=== PATIENT | male | born 1940 | race Caucasian/White ===

== ENCOUNTER → 2024-04-12 | Day surgery (SDC) | payer MEDICARE ==
[2024-04-11 13:07] LABS: BASOPHILS # (AUTO) 0.2 (0.0-0.1); BASOPHILS % 1.2 % (0.0-1.0); EOSINOPHILS # (AUTO) 0.5 (0.0-0.4); EOSINOPHILS % 2.5 % (0.0-6.0); HEMATOCRIT 56.9 % (38.2-49.6); HEMOGLOBIN 17.3 g/dL (14.0-18.0); LYMPHOCYTES # (AUTO) 1.1 (1.0-3.2); LYMPHOCYTES % 5.8 % (18.0-39.1); MEAN CORPUSCULAR HEMOGLOBIN 25.3 pg (28-32); MEAN CORPUSCULAR HGB CONC 30.4 g/dL (31-35); MEAN CORPUSCULAR VOLUME 83.1 fL (81-99); MONOCYTES # (AUTO) 0.6 (0.2-0.8); NEUTROPHILS % 86.7 % (38.7-80.0); PLATELET COUNT 336 x10e3/uL (140-360); RED BLOOD COUNT 6.85 x10e6/uL (4.3-5.7); RED CELL DISTRIBUTION WIDTH 23.4 % (11.7-14.4)
[2024-04-11 13:36] LABS: ANION GAP 15.8 mmol/L (8-16); CALCIUM 8.3 mg/dL (8.4-10.2); CREATININE, SERUM 1.21 mg/dL (0.72-1.25); POTASSIUM 3.8 mmol/L (3.5-5.1)
[~2024-04-12] MED LIST: ACETAMINOPHEN 1000 MG/100 ML 100 ML IV ONE; AMIODARONE HCL400 MG PO; AMLODIPINE BESYL5 MG PO; ATORVASTATIN CA20 MG PO; CARVEDILOL12.5 MG PO; CYCLOBENZAPRINE10 MG PO; DEXAMETHASONE SOD PHOS INJ 4 MG/ML SDV ONE; DILANTIN50 MG PO; EPHEDRINE SULFATE INJ 50 MG/ML VIAL ONE; ETOMIDATE 2 MG/ML 10 ML INJ IV ONE; FENTANYL CITRATE/PF 100MCG/2 ML INJ ONE; FINASTERIDE5 MG PO; FLOMAX0.4 MG PO; FUROSEMIDE40 MG PO; GLYCOPYRROLATE INJ 0.2 MG/ML VIAL ONE; IOPAMIDOL 610MG/1ML 300 MG/ML VIAL IV ONE; LEVETIRACETAM500 MG PO; LEVOTHYROXINE50 MCG PO; LIDOCAINE HCL 2% LOCAL INJ 5 ML SDV VIAL INJ ONE; ONDANSETRON HCL INJ 2MG/ML 2ML 2 MG/ML VIAL ONE; OXYBUTYNIN CHLOR5 MG PO; PHENYLEPHRINE HCL 1% 10 MG/ML VIAL ONE; PLAVIX75 MG PO; PROPOFOL IV EMULSION 10 MG/ML 20 ML VIAL ONE; PROTONIX20 MG PO; RANOLAZINE ER500 MG; SEVOFLURANE INHAL SOLN 250 ML PEN BTL ONE; SPIRONOLACTONE25 MG PO; XARELTO20 MG PO
[2024-04-12] MEDS: LACTATED RINGER'S 1,000 ML ONE (06:04)
[2024-04-12] MEDS: GENTAMICIN 80MG/NS 100 ML 200 ML IV ONE (06:05)
[2024-04-12 07:35] VITALS: TEMP 97.9
[2024-04-12] MEDS: PHENAZOPYRIDINE HCL 100 MG TAB ONE (08:07)
[2024-04-12 08:30] VITALS: BP 125/70; PULSE 70; RESP 16; O2SAT 95
== END | disposition home or self-care (01) ==
LOC: OR 05:30
PROVIDERS: ATTEND Urology
DX: Z43.5 Encounter for attention to cystostomy (principal); R33.8 Other retention of urine; N32.89 Other specified disorders of bladder; N35.812 Other bulbous urethral stricture, male; N35.819 Other urethral stricture, male, unspecified site; N39.0 Urinary tract infection, site not specified; N31.9 Neuromuscular dysfunction of bladder, unspecified; D44.10 Neoplasm of uncertain behavior of unspecified adrenal gland; N47.1 Phimosis; N13.8 Other obstructive and reflux uropathy; I10 Essential (primary) hypertension; E78.5 Hyperlipidemia, unspecified; I25.810 Atherosclerosis of coronary artery bypass graft(s) without angina pectoris; I25.2 Old myocardial infarction; I49.9 Cardiac arrhythmia, unspecified; J44.9 Chronic obstructive pulmonary disease, unspecified; R73.03 Prediabetes; K21.9 Gastro-esophageal reflux disease without esophagitis; G40.909 Epilepsy, unspecified, not intractable, without status epilepticus; M06.9 Rheumatoid arthritis, unspecified; F03.90 Unspecified dementia, unspecified severity, without behavioral disturbance, psychotic disturbance, mood disturbance, and anxiety; I69.351 Hemiplegia and hemiparesis following cerebral infarction affecting right dominant side; Z01.810 Encounter for preprocedural cardiovascular examination; Z01.812 Encounter for preprocedural laboratory examination; Z01.818 Encounter for other preprocedural examination; Z79.02 Long term (current) use of antithrombotics/antiplatelets; Z79.899 Other long term (current) drug therapy; Z85.46 Personal history of malignant neoplasm of prostate; Z85.038 Personal history of other malignant neoplasm of large intestine; Z95.1 Presence of aortocoronary bypass graft; Z92.3 Personal history of irradiation; Z87.891 Personal history of nicotine dependence
CPT/HCPCS: 36415; 51705; 52281; 71046; 74420; 80048; 85025; 87086; 87186; 93005; C1758; J0131; J1100; J1580; J2001; J2371; J2405; J2704; J3010; J7121; Q9967

== ENCOUNTER → 2025-01-01 | Day surgery (SDC) | payer MEDICARE ==
[2024-12-31 12:49] LABS: BASOPHILS # (AUTO) 0.4 (0.0-0.1); BASOPHILS % 1.4 % (0.0-1.0); EOSINOPHILS # (AUTO) 1.5 (0.0-0.4); EOSINOPHILS % 5.5 % (0.0-6.0); HEMATOCRIT 47.1 % (38.2-49.6); HEMOGLOBIN 12.6 g/dL (14.0-18.0); LYMPHOCYTES # (AUTO) 2.3 (1.0-3.2); LYMPHOCYTES % 8.2 % (18.0-39.1); MEAN CORPUSCULAR HEMOGLOBIN 17.5 pg (28-32); MEAN CORPUSCULAR HGB CONC 26.8 g/dL (31-35); MEAN CORPUSCULAR VOLUME 65.5 fL (81-99); MONOCYTES % 3.6 % (4.4-11.3); NEUTROPHILS # (AUTO) 22.1 (2.1-6.9); NEUTROPHILS % 80.4 % (38.7-80.0); PLATELET COUNT 473 x10e3/uL (140-360); RED CELL DISTRIBUTION WIDTH 22.5 % (11.7-14.4); WHITE BLOOD COUNT 27.45 x10e3/uL (4.8-10.8)
[2024-12-31 12:52] LABS: RED BLOOD COUNT 7.19 x10e6/uL (4.3-5.7)
[2024-12-31 13:12] LABS: ANION GAP 13.8 mmol/L (8-16); CALCIUM 8.2 mg/dL (8.4-10.2); CREATININE, SERUM 0.82 mg/dL (0.72-1.25); POTASSIUM 3.8 mmol/L (3.5-5.1)
[2024-12-31 17:46] LABS: BASOPHILS % (MANUAL) 1 % (0-1.5); ELLIPTOCYTE, RBC SLIGHT; EOSINOPHILS % (MANUAL) 7 % (0-7); HYPOCHROMASIA MODERATE; LYMPHOCYTES % (MANUAL) 14 % (19-48); MICROCYTOSIS MODERATE; MONOCYTES % (MANUAL) 4 % (3.4-9.0); NEUTROPHILS % (MANUAL) 74 % (40-74); PLATELET ESTIMATE ADEQUATE; PLATELET MORPHOLOGY COMMENT NORMAL; RBC MORPHOLOGY COMMENT ABNORMAL
[~2025-01-01] MED LIST changes: -ETOMIDATE 2 MG/ML 10 ML INJ IV ONE; -GLYCOPYRROLATE INJ 0.2 MG/ML VIAL ONE; -IOPAMIDOL 610MG/1ML 300 MG/ML VIAL IV ONE; +LEVOFLOXACIN 500 MG TAB PO ONE; -PHENYLEPHRINE HCL 1% 10 MG/ML VIAL ONE
[2025-01-01] MEDS: SODIUM CHLORIDE 0.9% 1000ML 1,000 ML ONE (09:56)
[2025-01-01] MEDS: MEROPENEM 1 GM VIAL ONE (09:57)
[2025-01-01 12:14] VITALS: TEMP 97
[2025-01-01] MEDS: LEVOFLOXACIN 500 MG TAB PO ONE (12:53)
[2025-01-01 14:00] VITALS: BP 165/74; PULSE 65; RESP 15; O2SAT 96
== END | disposition home or self-care (01) ==
LOC: OR 09:16
PROVIDERS: ATTEND Urology
DX: N47.1 Phimosis (principal); R33.8 Other retention of urine; Z43.5 Encounter for attention to cystostomy; N40.1 Benign prostatic hyperplasia with lower urinary tract symptoms; N31.9 Neuromuscular dysfunction of bladder, unspecified; N39.0 Urinary tract infection, site not specified; I25.810 Atherosclerosis of coronary artery bypass graft(s) without angina pectoris; I48.91 Unspecified atrial fibrillation; I11.0 Hypertensive heart disease with heart failure; I50.9 Heart failure, unspecified; I25.2 Old myocardial infarction; E78.5 Hyperlipidemia, unspecified; J44.9 Chronic obstructive pulmonary disease, unspecified; E03.9 Hypothyroidism, unspecified; G40.909 Epilepsy, unspecified, not intractable, without status epilepticus; Z01.810 Encounter for preprocedural cardiovascular examination; Z01.812 Encounter for preprocedural laboratory examination; Z79.02 Long term (current) use of antithrombotics/antiplatelets; Z79.899 Other long term (current) drug therapy; Z95.1 Presence of aortocoronary bypass graft; Z85.038 Personal history of other malignant neoplasm of large intestine
CPT/HCPCS: 36415; 51705; 54161; 80048; 85025; 87086; 88304; 93005; J0131; J1100; J2003; J2185; J2405; J2704; J3010; J7030

== ENCOUNTER 2025-05-17 14:33 | Emergency (ER) | payer MEDICARE ==
[~2025-05-17] VITALS: Ht 172.7 cm; Wt 86.2 kg
[~2025-05-17 14:33] MED LIST changes: -ACETAMINOPHEN 1000 MG/100 ML 100 ML IV ONE; -DEXAMETHASONE SOD PHOS INJ 4 MG/ML SDV ONE; -EPHEDRINE SULFATE INJ 50 MG/ML VIAL ONE; -FENTANYL CITRATE/PF 100MCG/2 ML INJ ONE; -LEVOFLOXACIN 500 MG TAB PO ONE; -LIDOCAINE HCL 2% LOCAL INJ 5 ML SDV VIAL INJ ONE; -ONDANSETRON HCL INJ 2MG/ML 2ML 2 MG/ML VIAL ONE; -PROPOFOL IV EMULSION 10 MG/ML 20 ML VIAL ONE; -SEVOFLURANE INHAL SOLN 250 ML PEN BTL ONE
[2025-05-17 15:29] VITALS: PULSE 62; RESP 19
[2025-05-17] MEDS ORDERED: CEFDINIR300 MG PO (15:34)
[2025-05-17 15:37] VITALS: TEMP 97.8
[2025-05-17 16:15] VITALS: BP 173/66; PULSE 75; RESP 18; O2SAT 98
== END 2025-05-17 16:16 | disposition home or self-care (01) ==
LOC: ER 14:40
DX: Z46.6 Encounter for fitting and adjustment of urinary device (principal); I50.9 Heart failure, unspecified; R73.03 Prediabetes; Z85.46 Personal history of malignant neoplasm of prostate; Z85.038 Personal history of other malignant neoplasm of large intestine
CPT/HCPCS: 87086; 87186; 99283